=== PATIENT | male | born 1985 | race Caucasian/White ===

== ENCOUNTER 2023-10-01 14:22 | Inpatient (IN) | payer OTHER ==
[2023-10-01 14:39] VITALS: BMI 32.2
[2023-10-01] MEDS ORDERED: chlordiazePOXIDE HCL 25 MG CAPSULE PO PRN (17:53)
[2023-10-01] MEDS ORDERED: BISMUTH SUBSALICYLATE 524 MG/30 ML PO PRN (17:57)
[2023-10-01] MEDS ORDERED: IBUPROFEN 600 MG TABLET (FP) PO PRN (17:57)
[2023-10-01] MEDS ORDERED: P-EPHED 60MG/TRIPROLIDI 2.5MG TABLET PO PRN (17:57)
[2023-10-01] MEDS ORDERED: BENZOCAINE/MENTHOL (CHLORASEPTIC ) LOZENGE MM PRN (17:57)
[2023-10-01] MEDS ORDERED: IBUPROFEN 400 MG TABLET (FP) PO PRN (17:57)
[2023-10-01] MEDS ORDERED: POLYETHYLENE GLYCOL (HEALTHYLAX) 3350 17 GM PACKET PO PRN (17:57)
[2023-10-01] MEDS ORDERED: LOPERAMIDE HCL 2 MG CAPSULE PO PRN (17:57)
[2023-10-01] MEDS ORDERED: NICOTINE POLACRILEX 2 MG GUM BUC PRN (17:57)
[2023-10-01] MEDS ORDERED: guaiFENesin 600 MG TABLET.ER (FP) PO PRN (17:57)
[2023-10-01] MEDS ORDERED: DICYCLOMINE HCL 10 MG CAPSULE PO PRN (17:57)
[2023-10-01] MEDS ORDERED: NICOTINE POLACRILEX 2 MG LOZENGE BC PRN (17:57)
[2023-10-01] MEDS ORDERED: BENZONATATE 200 MG CAPSULE PO PRN (17:57)
[2023-10-01] MEDS ORDERED: MAGNESIUM HYDROX 2400MG/30ML ORAL SUSPENSION 30 ML CUP PO PRN (17:57)
[2023-10-01] MEDS ORDERED: ONDANSETRON *ODT* 4 MG TABLET SL PRN (17:57)
[2023-10-01] MEDS: chlordiazePOXIDE HCL 25 MG CAPSULE PO ONE (19:47)
[2023-10-01] MEDS: ACETAMINOPHEN 325 MG TABLET (FP) PO PRN (19:49)
[2023-10-01] MEDS: METHOCARBAMOL 500 MG TABLET PO PRN (22:10)
[2023-10-01] MEDS: THIAMINE 100 MG TABLET PO SCH (22:10)
[2023-10-01] MEDS: MELATONIN 5 MG TABLETS PO SCH (22:10)
[2023-10-01] MEDS: chlordiazePOXIDE HCL 25 MG CAPSULE PO SCH (22:11)
[2023-10-02] MEDS: PRENATAL VITAMINS W/ FOLIC ACID TABLET (FP) PO SCH (10:09)
[2023-10-02 11:33] LABS: POTASSIUM 4.1 mmol/L (3.5-5.1)
[2023-10-02 11:35] LABS: ALBUMIN 3.4 g/dl (3.4-5.0); BLOOD UREA NITROGEN 13.2 mg/dL (7-18); CALCIUM 8.8 mg/dL (8.5-10.1)
[2023-10-02 11:40] LABS: BILIRUBIN,TOTAL 0.8 mg/dL (0.2-1); TOT PROT 6.3 g/dl (6.4-8.2)
[2023-10-02 11:42] LABS: HEMATOCRIT 41.3 % (35.4-49); HEMOGLOBIN 14.4 GM/dL (11.7-16.9); MCH 29.8 pg (25.7-33.7); MCHC 34.9 g/dl (32.0-35.9); MEAN CELL VOLUME 85.5 fl (80-96); MEAN PLT VOLUME 9.2 fl (7.5-11.1); PLATELET COUNT 257 10^3/uL (134-434); RBC 4.83 M/mm3 (4.00-5.60); RDW 13.8 % (11.9-15.9); WHITE BLOOD COUNT 8.3 K/mm3 (4.0-10.0)
[2023-10-02 12:26] LABS: HIV INTERPRETATION NEGATIVE (NEGATIVE)
[2023-10-03] MEDS: chlordiazePOXIDE HCL 25 MG CAPSULE PO SCH (05:38)
[2023-10-03] MEDS: GABAPENTIN 100 MG CAPSULE PO SCH (14:52)
[2023-10-03] MEDS: hydrOXYzine PAMOATE 25 MG CAPSULE (FP) PO PRN (17:40)
[2023-10-03] MEDS: OLANZapine 5 MG TABLET PO SCH (22:14)
[2023-10-04] MEDS ORDERED: chlordiazePOXIDE HCL 10 MG CAPSULE PO PRN
[2023-10-04] MEDS: chlordiazePOXIDE HCL 10 MG CAPSULE PO SCH (05:52)
[2023-10-04] MEDS: MAG HYDROX/AL HYDROX/SIMETH 30 ML UNIT-DOSE CUP PO PRN (18:04)
[2023-10-05] MEDS: chlordiazePOXIDE HCL 10 MG CAPSULE PO SCH (05:33)
[2023-10-06] MEDS: chlordiazePOXIDE HCL 10 MG CAPSULE PO ONE (05:35)
[2023-10-06 06:02] VITALS: TEMP 97.6
[2023-10-06 09:03] VITALS: BP 107/68; PULSE 68; RESP 18
== END 2023-10-06 10:35 | disposition home or self-care (01) | DRG 897 ==
LOC: YASAS 14:22 → Y3N 18:47
PROVIDERS: ADMIT Allergy & Immunology; ATTEND Psychiatry & Neurology Pain Medicine
PROC: HZ2ZZZZ Detoxification Services for Substance Abuse Treatment (ICD-10-PCS; principal; 2023-10-01)
DX: F10.230 Alcohol dependence with withdrawal, uncomplicated (principal); F14.20 Cocaine dependence, uncomplicated; Z59.00 Homelessness unspecified; F10.220 Alcohol dependence with intoxication, uncomplicated; F17.210 Nicotine dependence, cigarettes, uncomplicated; I10 Essential (primary) hypertension; Z86.19 Personal history of other infectious and parasitic diseases; Z56.0 Unemployment, unspecified
CPT/HCPCS: 36415; 80053; 80305; 80307; 85027; 86593; 86780; 87389; 93005; 93010